=== PATIENT | female | born 1940 | race Caucasian/White ===

== ENCOUNTER 2020-08-08 14:19 | Emergency (ER) | payer MEDICARE, OTHER ==
[2020-08-08] MEDS ORDERED: Acetaminophen/HYDROcodone 325-10 MG Tab PO ONE (14:20)
[2020-08-08] MEDS ORDERED: LORazepam 1 MG Tab PO ONE (14:20)
[2020-08-08] MEDS ORDERED: LORazepam 2 MG/ML SDV IVPUSH ONE (14:52)
--- NOTE | 2020-08-08 15:12 | CR ---
PROCEDURE INFORMATION: Exam: XR Chest Exam date and time: 08/08/2020 3:04 PM Age: 79 years old Clinical indication: Shortness of breath; Additional info: Short of breath, HX als TECHNIQUE: Imaging protocol: XR of the chest. Views: 1 view. COMPARISON: No relevant prior studies available. FINDINGS: Lungs: Linear atelectasis versus scarring in both mid to lower lung caal. Pleural spaces: Unremarkable. No pleural effusion. No pneumothorax. Heart/Mediastinum: Unremarkable. No cardiomegaly. Bones/joints: Unremarkable. IMPRESSION: Linear atelectasis versus scarring in both mid to lower lung caal.
[2020-08-08] MEDS ORDERED: Acetaminophen/HYDROcodone 325-10 MG Tab ONE (16:34)
[2020-08-08] MEDS ORDERED: LORazepam 1 MG Tab ONE (17:05)
--- NOTE | 2020-08-11 09:37 | EDM.PDOC ---
Scribed by Sahara De Leon 08/08/20 [id number] for Katelyn Sierra MD ED HPI GENERAL MEDICAL PROBLEM - General Chief Complaint: Respiratory Problem Stated Complaint: IN BY [facility] Time Seen by Provider: 08/08/20 14:34 Source of Information: Reports: Patient, EMS, EMS Notes Reviewed, RN, RN Notes Reviewed History Limitations: Reports: No Limitations - History of Present Illness INITIAL COMMENTS - FREE TEXT/NARRATIVE: Pt arrives to ER from home by [facility] with c/o shortness of breath and anxiety. Pt has ALS with symptoms since 2013. She is bedridden with Kishore lift and nonambulatory at home for several years. Pt denies cough, fever, wheezing, aspiration, choking, or difficulty swallowing. She is aware and anxious that ALS is a progressive illness with a terminal outcome. She has discussed anxiety with her doctor and was prescribed a medication to help with anxiety, depression, and appetite, but when he found out the it would take a couple of weeks for the medication to work she stopped taking it. She would like a fast acting anxiety medication that she only has to take once in a while when she needs it. Duration: Chronic, Constant Location: Reports: Generalized Severity: Severe Improves with: Reports: None Worsens with: Reports: None Associated Symptoms: Reports: No Other Symptoms - Related Data Allergies Allergy/AdvReac Type Severity Reaction Status Date / Time No Known Allergies Allergy Verified 08/08/20 14:59 Home Meds: Home Meds Aspirin [Ecotrin] 81 mg PO DAILY 08/26/14 [History] Levothyroxine [Synthroid] 50 mcg PO ACBREAKFAST 08/26/14 [History] atorvaSTATin [Lipitor] 10 mg PO BEDTIME 08/26/14 [History] Calcium Carbonate/Vitamin D3 [Calcium 500 + Vit D Caplet] 1 tab PO DAILY 11/10/17 [History] Fish Oil/[place]-3 Fatty Acids [Fish Oil 1,000 MG] 1 tab PO DAILY 11/10/17 [History] Multivitamin with Minerals [Multiple Vitamin] 1 tab PO DAILY 11/10/17 [History] Triamterene/Hydrochlorothiazid [Triamterene-HCTZ 37.5-25 MG] 1 tab PO DAILY 11/10/17 [History] Acetaminophen [Tylenol] 650 mg PO .PRN 12/22/17 [History] diphenhydrAMINE HCL [Benadryl Allergy] 50 mg PO .PRN 12/22/17 [History] Wheat Dextrin [Benefiber] 1 each PO DAILY 06/01/18 [History] Past Medical History Cardiovascular History: Reports: Hypertension Respiratory History: Reports: None, Other (See Below) Other Respiratory History: Some SOB with ambulation on occasion Gastrointestinal History: Reports: None Genitourinary History: Reports: Other (See Below) Other Genitourinary History: Only has 1 kidney Musculoskeletal History: Reports: Arthritis Neurological History: Reports: Vertigo, Other (See Below) 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) Psychiatric History: Reports: None Endocrine/Metabolic History: Reports: Hypothyroidism Hematologic History: Reports: None Immunologic History: Reports: None Oncologic (Cancer) History: Reports: None Dermatologic History: Reports: None - Infectious Disease History Infectious Disease History: Reports: None - Past Surgical History Head Surgeries/Procedures: Reports: None HEENT Surgical History: Reports: Cataract Surgery Cardiovascular Surgical History: Reports: None GI Surgical History: Reports: None Female Surgical History: Reports: Breast Biopsy, Section, Tubal Ligation Musculoskeletal Surgical History: Reports: None Social & Family History - Family History Family Medical History: No Pertinent Family History - Caffeine Use Caffeine Use: Reports: Coffee Caffeine Use Comment: 8 oz daily - Living Situation & Occupation Living situation: Reports: , with Spouse Occupation: Disabled ED ROS GENERAL - Review of Systems Review Of Systems: Comprehensive ROS is negative, except as noted in HPI. ED EXAM, GENERAL - Physical Exam Exam: See Below Exam Limited By: No Limitations General Appearance: Alert, Anxious, Obese, Other (Chronically ill appearing) Eye Exam: Bilateral Eye: Normal Inspection Nose: Normal Inspection Throat/Mouth: Normal Voice, No Airway Compromise Head: Atraumatic, Normocephalic Neck: Normal Inspection, Non-Tender Respiratory/Chest: No Respiratory Distress, Lungs Clear, No Accessory Muscle Use, Chest Non-Tender, Decreased Breath Sounds Cardiovascular: Regular Rate, Rhythm GI/Abdominal: Normal Bowel Sounds, Soft, Non-Tender Extremities: Limited Range of Motion (Chronic right leg paresis). No: Joint Swelling, Increased Warmth, Mottled, Pallor, Redness Neurological: Alert, Oriented, CN II-XII Intact Psychiatric: Anxious, Tearful Skin Exam: Warm, Dry, Normal Color, No Rash, Other (Chronic right buttock ulcer, now with intact but dusky dark discolored skin) Course - Vital Signs Last Recorded V/S: Last Vital Signs Temp 97.8 F 08/08/20 15:07 Pulse 84 08/08/20 15:07 Resp 20 08/08/20 15:07 BP 114/47 L 08/08/20 15:07 Pulse Ox 96 08/08/20 15:07 - Orders/Labs/Meds Meds: Medications Discontinued Medications Generic Name Dose Route Start Last Admin Trade Name Cierra PRN Reason Stop Dose Admin Hydrocodone Bitart/Acetaminophen Confirm 08/08/20 16:34 08/08/20 17:01 Acetaminophen/Hydrocodone 325-10 Mg Tab Administered 08/08/20 16:35 Not Given Dose 4 tab .ROUTE .STK-MED ONE Hydrocodone Bitart/Acetaminophen 1 tab 08/08/20 14:20 Acetaminophen/Hydrocodone 325-10 Mg Tab PO 08/08/20 14:21 .STK-MED ONE Lorazepam 0.5 mg 08/08/20 14:52 08/08/20 15:37 Lorazepam 2 Mg/Ml Sdv IVPUSH 08/08/20 14:53 0.5 mg ONETIME ONE Administration Lorazepam Confirm 08/08/20 17:05 Lorazepam 1 Mg Tab Administered 08/08/20 17:06 Dose 3 mg .ROUTE .STK-MED ONE Lorazepam 1 mg 08/08/20 14:20 Lorazepam 1 Mg Tab PO 08/08/20 14:21 .STK-MED ONE - Radiology Interpretation Free Text/Narrative:: [facility] Final Radiology Report Call: [phone] assistance Online chat: [email or web address] Name: JORGE NIELSON Age: 79Years F Date: 08/08/2020 SSN: -- : [id number] Study: CR CHEST 1V FRONTAL Requesting Physician: KATELYN SIERRA Images: 1 Addl Studies: Provided Clinical History: Short of breath, Hx ALS Contrast: Contrast Medium: Contrast Amount: Contrast Method: CONFIDENTIALITY STATEMENT This report is intended only for use by the referring physician, and only in accordance with law. If you received this in error, call [phone]. Page 1 of 1 PROCEDURE INFORMATION: Exam: XR Chest Exam date and time: 08/08/2020 3:04 PM Age: 79 years old Clinical indication: Shortness of breath; Additional info: Short of breath, HX als TECHNIQUE: Imaging protocol: XR of the chest. Views: 1 view. COMPARISON: No relevant prior studies available. FINDINGS: Lungs: Linear atelectasis versus scarring in both mid to lower lung caal. Pleural spaces: Unremarkable. No pleural effusion. No pneumothorax. Heart/Mediastinum: Unremarkable. No cardiomegaly. Bones/joints: Unremarkable. IMPRESSION: Linear atelectasis versus scarring in both mid to lower lung caal. Thank you for allowing us to participate in the care of your patient. Dictated and Authenticated by: Lorin Santos MD 08/08/2020 3:12 PM Central Time ([place] & [place]) - Re-Assessments/Exams Free Text/Narrative Re-Assessment/Exam: 08/08/20 15:46 The pt is relieved to learn that her chest x-ray is not worrisome, and that her oxygen saturations are normal. Plan to d/c pt home with her . Departure - Departure Time of Disposition: 15:47 Disposition: Home, Self-Care 01 Condition: Fair Clinical Impression: Shortness of breath, Anxiety, ALS (amyotrophic lateral sclerosis) - Discharge Information *PRESCRIPTION DRUG MONITORING PROGRAM REVIEWED*: No *COPY OF PRESCRIPTION DRUG MONITORING REPORT IN PATIENT HUONG: No Instructions: Shortness of Breath, Adult, [id number], Amyotrophic Lateral Sclerosis, Managing Anxiety, Adult Referrals: Janine Johnson NP [Primary Care Provider] - Forms: ED Department Discharge Additional Instructions: Rx: Lorazepam 1mg Follow up with Janine Johnson in clinic if needed. I have read and agree with the documentation that has been completed regarding this visit. By signing this record, I attest that the documentation was completed in my physical presence and is an accurate record of the encounter.
== END 2020-08-08 17:00 | disposition home or self-care (01) ==
LOC: DL.ED 14:19
DX: F41.9 Anxiety disorder, unspecified (principal); R06.02 Shortness of breath; G12.21 Amyotrophic lateral sclerosis; I10 Essential (primary) hypertension; E03.9 Hypothyroidism, unspecified; Z79.82 Long term (current) use of aspirin; Z79.899 Other long term (current) drug therapy
CPT/HCPCS: 71045; 96374; 99283; 99284-25; A9270-GY; J2060